=== PATIENT | male | born 1945 | race Caucasian/White ===

== ENCOUNTER → 2016-04-21 | Outpatient (CLI) | payer OTHER | END | disposition home or self-care (01) | LOC: PCVCCLINIC 13:42 | PROVIDERS: ATTEND Internal Medicine Cardiovascular Disease | DX: I77.9 Disorder of arteries and arterioles, unspecified (principal); I71.2 Thoracic aortic aneurysm, without rupture; E78.1 Pure hyperglyceridemia; E78.5 Hyperlipidemia, unspecified; I10 Essential (primary) hypertension | CPT/HCPCS: 80061; 93005; G0463 ==

== ENCOUNTER → 2016-05-03 | Outpatient (CLI) | payer OTHER | END | disposition home or self-care (01) | LOC: PCVCIMAG 11:01 | PROVIDERS: ATTEND Internal Medicine Cardiovascular Disease | DX: I10 Essential (primary) hypertension (principal); I71.2 Thoracic aortic aneurysm, without rupture | CPT/HCPCS: 93306 ==

== ENCOUNTER → 2016-10-25 | Outpatient (CLI) | payer OTHER | END | disposition home or self-care (01) | LOC: PCVCCLINIC 12:52 | PROVIDERS: ATTEND Internal Medicine Cardiovascular Disease | DX: I10 Essential (primary) hypertension (principal); E78.00 Pure hypercholesterolemia, unspecified; I71.2 Thoracic aortic aneurysm, without rupture; E78.4 Other hyperlipidemia; I45.10 Unspecified right bundle-branch block; R94.31 Abnormal electrocardiogram [ECG] [EKG]; M19.90 Unspecified osteoarthritis, unspecified site; Z79.82 Long term (current) use of aspirin; Z79.899 Other long term (current) drug therapy; Z87.891 Personal history of nicotine dependence | CPT/HCPCS: 80061; 93005; G0463 ==

== ENCOUNTER → 2017-05-07 | Outpatient (CLI) | payer MEDICARE, OTHER | END | disposition home or self-care (01) | LOC: PCVCIMAG 09:43 | DX: I10 Essential (primary) hypertension (principal); I71.2 Thoracic aortic aneurysm, without rupture; E78.00 Pure hypercholesterolemia, unspecified; Z87.891 Personal history of nicotine dependence; Z79.82 Long term (current) use of aspirin; Z79.899 Other long term (current) drug therapy | CPT/HCPCS: 80061; 93005; 93306; G0463 ==

== ENCOUNTER → 2018-07-02 | Outpatient (CLI) | payer MEDICARE, OTHER | END | disposition home or self-care (01) | LOC: PCVCCLINIC 11:00 | PROVIDERS: ATTEND Internal Medicine Cardiovascular Disease | DX: I10 Essential (primary) hypertension (principal); E78.5 Hyperlipidemia, unspecified; I71.2 Thoracic aortic aneurysm, without rupture; I73.9 Peripheral vascular disease, unspecified; M79.604 Pain in right leg; M79.605 Pain in left leg; Z88.6 Allergy status to analgesic agent | CPT/HCPCS: 36415; 80061; 93005; G0463 ==

== ENCOUNTER → 2018-08-07 | Outpatient (CLI) | payer MEDICARE, OTHER ==
--- NOTE | 2018-08-07 17:21 | PCVCIMAG ---
APPROVED REPORT Study performed: 08/07/2018 15:33:13 EXAM: Comprehensive 2D, Doppler, and color-flow Echocardiogram Patient Location: Echo lab Room #: 2Status: routine BSA: 2.26 HR: 75 bpmBP: 142/86 mmHg Rhythm: NSR Other Information Study Quality: Adequate Risk Factors: Cardiac Risk Factors: HTN, Hyperlipidemia Indications Hypertension/HDD Thoracic aortic aneurysm, PAD 2D Dimensions IVSd: 6.38 (7-11mm)LVOT Diam: 20.56 (18-24mm) LVDd: 49.69 mm PWd: 8.54 (7-11mm)Ascending Ao: 47.90 (22-36mm) LVDs: 33.50 (25-40mm) Left Atrium: 26.57 (27-40mm) Aortic Root: 35.79 mm LV Single Plane 4CH: 54.81 % LV Single Plane 2CH: 54.36 % Biplane EF: 54.9 % Volumes Left Atrial Volume (Systole) Single Plane 4CH: 32.41 mLSingle Plane 2CH: 33.24 mL Biplane LA Volume: 33.00 mLLA ESV Index: 15.00 mL/m2 Aortic Valve AoV Peak Dangelo.: 1.75 m/s AO Peak Gr.: 12.83 mmHgLVOT Max P.52 mmHg AO Mean Gr.: 5.64 mmHgLVOT Mean P.33 mmHg AO V2 Mean: 1.09 m/sLVOT Max V: 1.19 m/s AO V2 VTI: 31.43 cmLVOT Mean V: 0.86 m/s MAXI (VTI): 2.25 [id number] V1 VTI: 21.35 cm MAXI Vmax: 2.26 cm2 SV (LVOT): 70.87 mL Mitral Valve E/A Ratio: 0.6 MV Decel. Time: 224.35 ms MV E Max Dangelo.: 0.43 m/s MV A Dangelo.: 0.68 m/s IVRT: 124.57 ms TDI E/Lateral E': 6.14E/Medial E': 6.14 Medial E' Dangelo.: 0.07 m/s Lateral E' Dangelo.: 0.07 m/s Pulmonary Valve PV Peak Dangelo.: 0.95 m/sPV Peak Gr.: 3.59 mmHg Pulmonary Vein P Vein S: 0.57 m/sP Vein A: 0.31 m/s P Vein D: 0.38 m/sP Vein A Dur.: 83.0 msec P Vein S/D Ratio: 1.50 Tricuspid Valve TR Peak Dangelo.: 1.58 m/s TR Peak Gr.: 9.95 mmHg TV Vmax: 0.53 m/sPA Pressure: 17.00 mmHg Left Ventricle The left ventricle is normal size. There is normal LV segmental wall motion. There is normal left ventricular wall thickness. Left ventricular systolic function is normal. The left ventricular ejection fraction is within the normal range. LVEF is 55%. Grade I - abnormal relaxation pattern. Right Ventricle Right ventricle is mildly dilated. The right ventricular systolic function is normal. Atria The left atrium size is normal. Right atrium is dilated. Aortic Valve Aortic valve is trileaflet. Aortic valve leaflets are moderately sclerotic. No aortic regurgitation is present. There is no aortic valvular stenosis. Mitral Valve The mitral valve is normal in structure. There is no mitral valve regurgitation noted. No evidence of mitral valve stenosis. Tricuspid Valve The tricuspid valve is normal in structure. Trace tricuspid regurgitation. No pulmonary hypertension. Pulmonic Valve The pulmonary valve is normal in structure. There is no pulmonic valvular regurgitation. Great Vessels The aortic root is normal in size. The ascending aorta is moderately dilated. Aortic arch is not well visualized but appears normal in size. IVC is not visualized. Pericardium There is no pericardial effusion. There is no pleural effusion. <Conclusion> The left ventricle is normal size. LVEF is 55%. Grade I - abnormal relaxation pattern. Right ventricle is mildly dilated. Right atrium is dilated. Aortic valve is trileaflet. Aortic valve leaflets are moderately sclerotic. There is no aortic valvular stenosis. There is no mitral valve regurgitation noted. Trace tricuspid regurgitation. No pulmonary hypertension. The aortic root is normal in size. The ascending aorta is moderately dilated. Aortic arch is not well visualized but appears normal in size. There is no pericardial effusion.
--- NOTE | 2018-08-08 17:56 | PCVCIMAG ---
EXAM: BILATERAL LOWER EXTREMITY ARTERIAL DUPLEX INDICATION: Peripheral Arterial Disease. Leg pain. FINDINGS: Right Leg: Common femoral and profunda femoral arteries are patent. Segmental occlusion mid [place] superficial femoral artery. Popliteal artery is patent. Anterior tibial, peroneal, and posterior tibial arteries are patent. Left Leg: Common femoral and [place]unda femoral arteries are patent. 40-50% stenosis distal [place] left superficial femoral artery. Popliteal artery is patent. Anterior tibial, peroneal, and posterior tibial arteries are patent IMPRESSION: Segmental occlusion mid [place] right superficial femoral artery. 40-50% stenosis distal [place] left superficial femoral artery. LOC:[id number]
== END | disposition home or self-care (01) ==
LOC: PCVCIMAG 14:49
PROVIDERS: ATTEND Internal Medicine Cardiovascular Disease
DX: I35.8 Other nonrheumatic aortic valve disorders (principal); I10 Essential (primary) hypertension; I71.2 Thoracic aortic aneurysm, without rupture; I73.9 Peripheral vascular disease, unspecified; R07.9 Chest pain, unspecified; R06.02 Shortness of breath; E78.00 Pure hypercholesterolemia, unspecified; E78.5 Hyperlipidemia, unspecified; M19.90 Unspecified osteoarthritis, unspecified site; Z87.891 Personal history of nicotine dependence
CPT/HCPCS: 93306; 93925; G0463

== ENCOUNTER → 2018-11-18 | Outpatient (CLI) | payer MEDICARE, OTHER ==
--- NOTE | 2018-11-18 10:40 | PCVCIMAG ---
EXAM: BILATERAL CAROTID DUPLEX INDICATION: Carotid Occlusive Disease. FINDINGS: Doppler Measurements (centimeters per second): RIGHT: Peak CCA-86, Peak ECA-112, Diastolic ICA-24, Peak ICA-70, ICA/CCA Ratio-0.7. LEFT: Peak CCA-87, Peak ECA-86, Diastolic ICA-33, Peak ICA-73, ICA/CCA Ratio-0.8. RIGHT CAROTID: The carotid bulb has mild plaque. The proximal internal carotid artery shows <40% stenosis. The common carotid artery shows no significant stenosis. The external carotid artery shows no significant stenosis. LEFT CAROTID: The carotid bulb has moderate plaque. The proximal internal carotid artery shows <40% stenosis. The common carotid artery shows no significant stenosis. The external carotid artery shows no significant stenosis. Antegrade flow in both vertebral arteries. IMPRESSION: <40% stenosis of the right internal carotid artery with mild plaque. <40% stenosis of the left internal carotid artery with moderate plaque. Little overall change since June 2015. LOC:[id number]
--- NOTE | 2018-11-18 13:18 | PCVCIMAG ---
EXAM: BILATERAL LOWER EXTREMITY ARTERIAL DUPLEX INDICATION: Peripheral Arterial Disease. Leg pain. FINDINGS: Right Leg: Common femoral and profunda femoral artery are patent. Superficial femoral and popliteal artery are patent. Previous stent proximal and mid/distal superficial femoral artery are patent. Moderate stenosis proximal/mid anterior tibial artery. Peroneal artery and posterior tibial arteries are patent. Left Leg: Common femoral and profunda femoral arteries are patent. 40-50% stenosis distal [place] superficial femoral artery not felt be flow-limiting is unchanged since July 2018 study. The anterior tibial, peroneal, and posterior tibial arteries are patent. IMPRESSION: Previous right superficial femoral artery stents are patent. Unchanged 40-50% stenosis distal [place] left superficial femoral artery not felt to be flow-limiting. LOC:[id number]
== END | disposition home or self-care (01) ==
LOC: PCVCIMAG 09:25
PROVIDERS: ATTEND Nuclear Medicine Nuclear Cardiology
DX: I65.23 Occlusion and stenosis of bilateral carotid arteries (principal); Z87.891 Personal history of nicotine dependence
CPT/HCPCS: 93880; 93925

== ENCOUNTER → 2018-11-21 | Outpatient (CLI) | payer MEDICARE, OTHER | END | disposition home or self-care (01) | LOC: PCVCCLINIC 10:30 | PROVIDERS: ATTEND Nuclear Medicine Nuclear Cardiology | DX: I73.9 Peripheral vascular disease, unspecified (principal); I25.10 Atherosclerotic heart disease of native coronary artery without angina pectoris; I10 Essential (primary) hypertension; I71.2 Thoracic aortic aneurysm, without rupture; I77.9 Disorder of arteries and arterioles, unspecified; E78.00 Pure hypercholesterolemia, unspecified; M19.90 Unspecified osteoarthritis, unspecified site; E78.5 Hyperlipidemia, unspecified; K21.9 Gastro-esophageal reflux disease without esophagitis; Z87.891 Personal history of nicotine dependence | CPT/HCPCS: G0463 ==